=== PATIENT | male | born 1945 | race Hispanic/Latino ===

== ENCOUNTER 2019-08-12 11:46 | Inpatient (IN) | payer MEDICARE ==
[~2019-08-12 11:46] MED LIST: Calcium Chloride 1 GM/10 ML Abboject SYRINGE ONE; EPHEDRINE 25 MG/5 ML SYRINGE ONE; Iopamidol 370 76% 100 ML VIAL ONE; Iopamidol 370 76% 50 ML VIAL FS ONE; Metoclopramide HCl 10 MG/2 ML VIAL ONE; Ondansetron PF 4 MG/2 ML Vial ONE; PHENYLEPHRINE-NS 100 MCG/ML 10 ML SYRINGE ONE; Rocuronium Bromide 10 MG/ML (10ML VIAL) ONE; Succinylcholine Chloride 20 MG/ML 10 ml SYRINGE FS ONE; Vecuronium 10 MG VIAL ONE
[2019-08-12] MEDS ORDERED: Ketamine 50 MG/ML (10ML VIAL) ONE ×2 (12:10→12:20)
[2019-08-12] MEDS ORDERED: Rocuronium Bromide 10 MG/ML (10ML VIAL) ONE ×2 (12:10→12:12)
[2019-08-12 12:12] LABS: #Basophils 0.1 thou/uL (0.0-0.2); #Eosinphils 0.3 thou/uL (0.0-0.7); #Lymphocytes 1.2 thou/uL (1.20-3.40); #Monocytes 0.4 thou/uL (0.11-0.59); #Neutrophils 10.8 thou/uL (1.40-6.50); %Basophils 0.6 % (0.0-1.0); %Eosinophils 2.3 % (0.0-10.0); %Lymphocytes 9.2 % (21.0-51.0); %Monocytes 3.3 % (0.0-10.0); %Neutrophils 84.7 % (42.0-75.0); Hemoglobin 12.3 g/dL (14.0-18.0); Mean Corpuscular Hemoglobin 32.8 pg (27.0-31.0); Mean Corpuscular Volume 99.3 fL (78.0-98.0); Mean Platelet Volume 8.5 fL (7.4-10.4); Platelet Count 156 thou/uL (130-400); RBC Distribution Width 13.4 % (11.5-14.5); Red Blood Cell (RBC) Count 3.74 mill/uL (4.70-6.10); White Blood Cell (WBC) Count 12.8 thou/uL (4.8-10.8)
[2019-08-12] MEDS ORDERED: Rocuronium Bromide 50 MG/5 ML VIAL ONE (12:12)
[2019-08-12] MEDS ORDERED: Fentanyl 100 MCG/2 ML VIAL ONE (12:18)
[2019-08-12] MEDS ORDERED: Norepinephrine 4 MG/4 ML VIAL ONE (12:18)
[2019-08-12] MEDS ORDERED: Phenylephrine 10 MG/ML VIAL ONE (12:18)
[2019-08-12] MEDS ORDERED: Albumin 25% 0 ML ONE (12:19)
[2019-08-12] MEDS ORDERED: Famotidine/PF 20 mg/2ml Vial ONE (12:19)
[2019-08-12] MEDS ORDERED: Albumin 5% 500 ML ONE (12:19)
[2019-08-12 12:20] LABS: INR-International Normal Ratio 1.2; PTT 23.8 SEC (22.9-36.1); Prothrombin Time 14.9 SEC (12.0-14.7)
[2019-08-12] MEDS ORDERED: Heparin 10,000 UNITS/1 ML VIAL ONE (12:23)
[2019-08-12 12:28] LABS: ALT (SGPT) 7 U/L (8-55); AST (SGOT) 14 U/L (5-34); Albumin 3.6 g/dL (3.4-4.8); Alkaline Phosphatase 51 U/L (40-110); Anion Gap 11 mmol/L (10-20); BUN (Urea Nitrogen) 13 mg/dL (8.4-25.7); Bilirubin, Total 0.4 mg/dL (0.2-1.2); Calc. Creatinine Clearance 0 mL/min (70-130); Calcium 8.1 mg/dL (7.8-10.44); Carbon Dioxide 25 mmol/L (23-31); Chloride 107 mmol/L (98-107); Estimated GFR-MDRD 53; Globulin 2.4 g/dL (2.4-3.5); Glucose 190 mg/dL (83-110); Lipase 15 U/L (8-78); Potassium 3.1 mmol/L (3.5-5.1); Sodium 140 mmol/L (136-145)
[2019-08-12 12:49] LABS: CKMB 1.5 ng/mL (0-6.6)
[2019-08-12] MEDS ORDERED: Heparin 5,000 UNITS/ML VIAL ONE (12:52)
[2019-08-12] MEDS ORDERED: Midazolam HCl 2 mg/2 ml Vial ONE (12:55)
[2019-08-12] MEDS ORDERED: Sodium Bicarb 50 MEQ/50 ML VIAL ONE ×2 (13:04→13:57)
[2019-08-12] MEDS ORDERED: Sodium Bicarbonate 2.5 MEQ/5 ML VIAL ONE (13:04)
[2019-08-12] MEDS ORDERED: Protamine Sulfate 50 MG/5 ML VIAL ONE (13:39)
--- NOTE | 2019-08-12 13:54 | CT ---
CT CHEST WITH IV CONTRAST AND 3D POSTPROCESSING CT ABDOMEN WITH IV CONTRAST AND 3D POSTPROCESSING: HISTORY: A 74-year-old male with syncope, right lower quadrant pain. FINDINGS: There is a large amount of retroperitoneal hemorrhage in the abdomen and pelvis secondary to a ruptur ed dissecting abdominal aortic aneurysm measuring about 9.6 cm. Active extravasation of contrast is also seen. There is absence of flow/enhancement of the upper portion of the right renal cortex consi stent with infarction. Flow is demonstrated to the common femoral arteries. There is good flow to t he left kidney. 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 No pleural or pericardial effusions are seen. No pneumothoraces or lobar consolidation identified. There are d ependent changes in the posterior lung bases. There are degenerative changes in the spine. Flow is demonstrated in the celiac axis and the SMA and the left renal artery. IMPRESSION: Acute rupture of the dissecting abdominal aortic aneurysm with extensive retroperitoneal hemorrhage. Discussed over the telephone with ER physician, Dr. Lance Thomson, at 12:24 p.m. CODE CR POS: NICHOLAS
[2019-08-12] MEDS ORDERED: Norepinephrine 8 MG/0.9% NS 250 ML IVPB PRN (15:02)
[2019-08-12] MEDS ORDERED: Hetastarch 6% 500 ML 500 ML IVPB PRN (15:02)
[2019-08-12] MEDS ORDERED: Morphine 2 MG/ML SYRINGE SLOW IVP PRN ×2 (15:02→15:38)
[2019-08-12] MEDS ORDERED: Fentanyl 100 MCG/2 ML VIAL SLOW IVP PRN ×2 (15:02)
[2019-08-12] MEDS ORDERED: Post-Op Insulin Drip Protocol IVPB ONE (15:02)
[2019-08-12] MEDS ORDERED: niCARdipine 25 MG in Sodium Chloride 0.9% 250 ML 250 ML IVPB PRN (15:02)
[2019-08-12] MEDS ORDERED: DOPamine 400 MG/D5W 250 ML 250 ML IVPB PRN (15:02)
[2019-08-12] MEDS ORDERED: Ondansetron PF 4 MG/2 ML Vial IVP PRN (15:02)
[2019-08-12] MEDS ORDERED: Ventilator Sedation Protocol 1 EACH FS SCH (15:15)
--- NOTE | 2019-08-12 15:28 | HP ---
HISTORY OF PRESENT ILLNESS: This is a 74-year-old who really could not give me any history because he was fairly obtunded, but EMS informed me the patient evidently passed out in his garage and was unable to call for help for about an hour when he finally was able to get to the phone. He was found to be severely hypotensive on the scene and was in the process of receiving massive transfusion protocol when I arrived in the high ER. He was in the CT scanner at that point, showing a large ruptured abdominal aortic aneurysm. PAST MEDICAL HISTORY: No past medical history could be obtained. PHYSICAL EXAMINATION: GENERAL: On exam, the patient would awaken when I talk to him, but he was rather groggy, somewhat pale. LUNGS: Clear to auscultation. ABDOMEN: Firm and very tender, particularly in the lower abdominal area. He had no palpable femoral pulses. The patient is to be escorted immediately to the operating room for ruptured abdominal aneurysm. Job ID: [id number]
[2019-08-12 15:33] LABS: #Eosinphils 0.1 thou/uL (0.0-0.7); #Lymphocytes 0.6 thou/uL (1.20-3.40); #Monocytes 0.5 thou/uL (0.11-0.59); #Neutrophils 10.2 thou/uL (1.40-6.50); %Eosinophils 0.9 % (0.0-10.0); %Lymphocytes 4.9 % (21.0-51.0); %Monocytes 4.2 % (0.0-10.0); %Neutrophils 89.9 % (42.0-75.0); Hemoglobin 12.2 g/dL (14.0-18.0); INR-International Normal Ratio 1.2; Mean Corpuscular Hemoglobin 32.6 pg (27.0-31.0); Mean Platelet Volume 8.5 fL (7.4-10.4); Platelet Count 81 thou/uL (130-400); Prothrombin Time 15.6 SEC (12.0-14.7); RBC Distribution Width 13.6 % (11.5-14.5); Red Blood Cell (RBC) Count 3.75 mill/uL (4.70-6.10); White Blood Cell (WBC) Count 11.4 thou/uL (4.8-10.8)
[2019-08-12 15:34] LABS: PTT 34.3 SEC (22.9-36.1)
[2019-08-12] MEDS ORDERED: Dextrose 5% in Water 1,000 ML IV PRN (15:38)
[2019-08-12] MEDS ORDERED: Dextrose 50% Abboject 50 ML SYRINGE SLOW IVP PRN (15:38)
[2019-08-12] MEDS ORDERED: DISCONTINUE PREVIOUS NARCOTIC PAIN MEDICATIONS AND BENZODIAZEPINES FS SCH (15:38)
[2019-08-12] MEDS ORDERED: Propofol BOLUS 1,000 MG/100 ML VIAL IV PRN (15:38)
[2019-08-12] MEDS ORDERED: Insulin Regular 300 UNITS/3 ML VIAL SC PRN (15:38)
[2019-08-12] MEDS ORDERED: Fentanyl BOLUS 250 ML IVPB PRN (15:38)
[2019-08-12] MEDS ORDERED: fentaNYL Citrate/PF 2,000 MCG in Sodium Chloride 0.9% 60 ML IV SCH (15:38)
[2019-08-12] MEDS ORDERED: Lorazepam 2 MG/ML VIAL SLOW IVP PRN (15:38)
[2019-08-12] MEDS ORDERED: HUMULIN R 100 UNITS in Sodium Chloride 0.9% 100 ML IVPB SCH (15:38)
[2019-08-12 15:51] LABS: Anion Gap 16 mmol/L (10-20); BUN (Urea Nitrogen) 12 mg/dL (8.4-25.7); Calc. Creatinine Clearance 0 mL/min (70-130); Carbon Dioxide 27 mmol/L (23-31); Chloride 108 mmol/L (98-107); Estimated GFR-MDRD 66; Glucose 156 mg/dL (83-110); Potassium 3.8 mmol/L (3.5-5.1); Sodium 147 mmol/L (136-145)
[2019-08-12] MEDS: Propofol 1,000 MG/100 ML VIAL IV PRN ×2 (16:20→18:40)
[2019-08-12] MEDS: Sodium Chloride 0.9% 1,000 ML IV SCH (16:20)
--- NOTE | 2019-08-12 16:36 | RAD ---
PORTABLE CHEST: Date: 08-12-2019 Provided Clinical History: Post op. FINDINGS: CT examination performed earlier same date. There is conspicuous appearance to the aortic arch compat ible with the previously described aneurysmal dilatation. Heart size remains normal. Interval intubat ion, with the tip of the ET tube projecting just below the thoracic inlet. Right subclavian central l ine is present, tip projecting in the region of the right atrium. Enteric catheter is present, tip of which overlies the left midabdomen. No focal consolidation, pleural fluid or pneumothorax apparent w ith regards to the later due to the supine nature of the study. Bibasilar subsegmental atelectatic ch anges are seen. IMPRESSION: Interval support apparatus as above. POS: FORTINO
--- NOTE | 2019-08-12 17:15 | CON ---
DATE OF CONSULTATION: HISTORY OF PRESENT ILLNESS: A 74-year-old gentleman, who is intubated in the vent post emergency abdominal aortic aneurysm repair. He presented to the ER today with a blood pressure of 77/53, respirations 20, pulse 72 with abdominal pain, sudden onset. He was hypotensive and bradycardic. He then underwent imaging studies, which showed evidence of rupture of the aortic abdominal aneurysm. He received transfusion. He is now postop on the vent. At this time, there is no initial information obtained except past medical history that is pertinent for apparently hypertension. Please note, Pulmonary/Critical Care will get information from the family as they arrive. His primary care physician lives locally. We may contact him. REVIEW OF SYSTEMS: Otherwise, unremarkable. PHYSICAL EXAMINATION: VITAL SIGNS: Pulse 59, blood pressure 112/59, saturations are 100%, respiratory rate 12. GENERAL: He is sedated. CHEST: No wheezing or crackles. CARDIAC: Normal S1 and S2. No gallops. ABDOMEN: No masses. LABORATORY DATA: Unremarkable. H and H are now stable at 12 and 34. Platelet count is low at 81. His lytes are normal. X-ray is clear. Lactic acid 4.2. IMPRESSION: 1. Status post hypotension secondary to ruptured abdominal aortic aneurysm, status post emergent surgery. 2. Shock, hypotension. PLAN: Continue supportive care. Once he stabilizes, start weaning. As noted, we will try and get additional information as family arrives. TIME SPENT: 45 minutes of Critical Care time. Job ID: [id number]
[2019-08-12 18:23] LABS: Lactic Acid 2.3 mmol/L (0.5-2.2)
[2019-08-12] MEDS ORDERED: Atropine Sulfate 1 mg/10 ml Syringe ONE (19:23)
[2019-08-12 19:34] LABS: Hemoglobin 11.4 g/dL (14.0-18.0)
[2019-08-12 19:36] LABS: Actual Bicarbonate (HCO3a) 24.8 mEq/L (22-28); Calcium, Ionized 1.01 mmol/L (1.12-1.30); Carboxyhemoglobin (COHb) 1.3 gm% (0.0-3.0); Hemoglobin (Hb) 11.1 g/dL (14.0-18.0); O2 Tension (PaO2) 62.9 mmHg (> 70.0); Potassium - ABG Lab 3.43 mmol/L (3.70-5.30)
[2019-08-12] MEDS: CEFAZOLIN 2 GM in Premix Bag 1 BAG IVPB SCH (19:43)
[2019-08-12] MEDS: Famotidine/PF 20 mg/2ml Vial SLOW IVP SCH (20:00)
[2019-08-12] MEDS: Nitroglycerin 50 MG/250 ML BOT 250 ML IVPB PRN (20:34)
[2019-08-12] MEDS ORDERED: Famotidine/PF 20 mg/2ml Vial SLOW IVP SCH (21:00)
[2019-08-12 21:26] LABS: Hemoglobin 10.8 g/dL (14.0-18.0); Platelet Count 65 thou/uL (130-400)
[2019-08-12 21:47] LABS: Potassium 3.4 mmol/L (3.5-5.1)
[2019-08-12] MEDS: Potassium Chloride 20 MEQ/100 ML PREMIX BAG IVPB PRN (23:01)
[2019-08-13] MEDS: Sodium Chloride 0.9% 1,000 ML IV SCH ×2 (00:31→07:39)
[2019-08-13] MEDS: Propofol 1,000 MG/100 ML VIAL IV PRN ×2 (00:33→08:04)
[2019-08-13 00:58] LABS: Hemoglobin 10.5 g/dL (14.0-18.0); Platelet Count 71 thou/uL (130-400)
[2019-08-13] MEDS: CEFAZOLIN 2 GM in Premix Bag 1 BAG IVPB SCH ×2 (04:46→11:31)
[2019-08-13 05:30] LABS: #Lymphocytes 0.8 thou/uL (1.20-3.40); #Monocytes 0.5 thou/uL (0.11-0.59); #Neutrophils 6.4 thou/uL (1.40-6.50); %Basophils 0.4 % (0.0-1.0); %Eosinophils 0.1 % (0.0-10.0); %Lymphocytes 10.4 % (21.0-51.0); Mean Corpuscular HGB CONC 35.4 g/dL (32.0-36.0); Mean Corpuscular Hemoglobin 32.3 pg (27.0-31.0); Mean Corpuscular Volume 91.2 fL (78.0-98.0); Mean Platelet Volume 9.5 fL (7.4-10.4); Platelet Count 73 thou/uL (130-400); RBC Distribution Width 14.1 % (11.5-14.5); Red Blood Cell (RBC) Count 3.09 mill/uL (4.70-6.10); White Blood Cell (WBC) Count 7.7 thou/uL (4.8-10.8)
[2019-08-13 05:50] LABS: Anion Gap 11 mmol/L (10-20); BUN (Urea Nitrogen) 16 mg/dL (8.4-25.7); Calc. Creatinine Clearance 83 mL/min (70-130); Calcium 7.5 mg/dL (7.8-10.44); Carbon Dioxide 27 mmol/L (23-31); Chloride 112 mmol/L (98-107); Estimated GFR-MDRD 67; Glucose 113 mg/dL (83-110); Potassium 3.7 mmol/L (3.5-5.1); Sodium 146 mmol/L (136-145)
[2019-08-13] MEDS: Potassium Chloride 20 MEQ/100 ML PREMIX BAG IVPB PRN (06:01)
--- NOTE | 2019-08-13 07:46 | OP ---
DATE OF PROCEDURE: 08/12/2019 PREOPERATIVE DIAGNOSIS: Ruptured abdominal aortic aneurysm. PROCEDURE: Repair using a #20 tube graft. WEB COORDINATOR: Rocky. TRANSFUSION: Multiple units of packed red cells and fresh frozen plasma. DESCRIPTION OF PROCEDURE: After adequate anesthesia had been obtained, a right subclavian triple-lumen CVP was placed, but did require a number of punctures to be able to thread the wire. After this had been done, the patient was prepped and draped. While Anesthesia was attempting to start a radial art line, the patient's midline laparotomy was carried out. Abdomen was entered and there was no obvious free blood. However, there was a huge retroperitoneal hematoma approximating the anterior fascial region. Attempts to identify the aorta at the diaphragmatic hiatus were unsuccessful due to the size of the hematoma. For this reason, self-retaining retractors were placed and the bowel was mobilized toward the right side. The ligament of Treitz had been shifted well to the left of the midline after mobilizing the duodenum. The aorta was palpated above the aneurysm and a clamp applied. Following this, the aneurysm was opened after identifying the iliac arteries and clamping them. After opening the aorta, there was still some bleeding proximally and dissection was then carried out and a clamp applied slightly higher on the aorta above the aneurysm. This stopped the bleeding, and lumbar vessels were oversewn. The thrombus was removed from the right common iliac artery, this appeared to be more chronic thrombus. There was some back bleeding from both iliac arteries and 5000 units of heparin were given. The proximal anastomosis was then carried out with a #20 Hemashield graft and a running 3-0 Prolene suture, and following completion of this, there was good hemostasis, but there was bleeding from the aorta in the region of the cross clamp on the left side of the aorta. This was controlled with 2 pledgeted sutures. Following this, attention was turned to the distal anastomosis, which was carried out to the combined orifices of the common iliac arteries. After this had been completed, flow was restored after ensuring that there was no clot in the iliac arteries or in the graft. Following this, the abdomen was irrigated with warm saline and bleeding sites were inspected and there were no bleeding sites from the suture line or the supra-graft aorta. Following this, the aneurysm sac was used to close over the graft and the abdominal contents were returned into the abdominal cavity, where a double-stranded running PDS suture was used to close the fascia. Subcutaneous tissue and skin were closed in layers. A right femoral arterial line was placed with good femoral pulses palpable and both feet were pink. The patient was to be taken to the ICU in critical condition. Job ID: [id number]
[2019-08-13] MEDS: Lactated Ringer's 1,000 ML IV SCH ×2 (07:52→20:29)
--- NOTE | 2019-08-13 07:53 | RAD ---
EXAM: Portable chest PROVIDED CLINICAL HISTORY: Post open heart COMPARISON: 08/12/2019 FINDINGS: Cardiac and mediastinal silhouette is within normal limits. No focal consolidation, pleural fluid or pneumothorax evident. Support apparatus redemonstrated in similar positions. Persistent bibasilar subsegmental atelectatic change. IMPRESSION: No evidence for an acute cardiopulmonary process.
[2019-08-13] MEDS: Famotidine/PF 20 mg/2ml Vial SLOW IVP SCH ×2 (09:46→20:29)
--- NOTE | 2019-08-13 11:04 | PRG ---
DATE OF SERVICE: 08/13/2019 SUBJECTIVE: This morning, he is awake, alert, responsive on the vent. OBJECTIVE: VITAL SIGNS: Pulse 64, blood pressure 107/60, respiratory rate 18. EXTREMITIES: Moves all 4 extremities. CHEST: Decreased breath sounds. No wheezing. CARDIAC: Normal S1 and S2. No gallops. ABDOMEN: No masses. LABORATORY DATA: Lab shows renal function normal, glucose 113. His platelet count is 73,000, H and H 10 and 28. IMAGING: X-ray is clear, questionable atelectatic changes. ASSESSMENT: 1. Emergency surgery for ruptured aortic aneurysm repair. 2. Hypotension. PLAN: Try to wean and extubate. Continue PT, supportive care. We will follow. One-half hour of critical time. Job ID: [id number]
[2019-08-13] MEDS: hydrALAZINE 20 MG/ML VIAL SLOW IVP PRN (12:23)
[2019-08-13 14:19] LABS: Hemoglobin 10.7 g/dL (14.0-18.0); Platelet Count 74 thou/uL (130-400)
[2019-08-13] MEDS: Morphine 4 MG/ML VIAL IV PRN ×3 (14:32→22:18)
[2019-08-13] MEDS ORDERED: Fentanyl 100 MCG/2 ML VIAL SLOW IVP PRN (16:50)
[2019-08-14] MEDS: hydrALAZINE 20 MG/ML VIAL SLOW IVP PRN ×2 (02:17→09:29)
[2019-08-14] MEDS: Labetalol HCl 100 MG/20 ML VIAL SLOW IVP PRN (03:27)
[2019-08-14 04:21] LABS: #Lymphocytes 0.7 thou/uL (1.20-3.40); #Monocytes 0.6 thou/uL (0.11-0.59); #Neutrophils 8.8 thou/uL (1.40-6.50); %Basophils 0.1 % (0.0-1.0); %Eosinophils 0.3 % (0.0-10.0); %Lymphocytes 6.4 % (21.0-51.0); %Monocytes 5.5 % (0.0-10.0); %Neutrophils 87.6 % (42.0-75.0); Hemoglobin 9.7 g/dL (14.0-18.0); Mean Corpuscular HGB CONC 34.6 g/dL (32.0-36.0); Mean Corpuscular Hemoglobin 32.3 pg (27.0-31.0); Mean Corpuscular Volume 93.3 fL (78.0-98.0); Mean Platelet Volume 8.9 fL (7.4-10.4); Platelet Count 80 thou/uL (130-400); RBC Distribution Width 14.2 % (11.5-14.5); Red Blood Cell (RBC) Count 2.99 mill/uL (4.70-6.10); White Blood Cell (WBC) Count 10.1 thou/uL (4.8-10.8)
[2019-08-14 04:25] LABS: Anion Gap 12 mmol/L (10-20); BUN (Urea Nitrogen) 14 mg/dL (8.4-25.7); Calc. Creatinine Clearance 109 mL/min (70-130); Calcium 8.4 mg/dL (7.8-10.44); Carbon Dioxide 26 mmol/L (23-31); Chloride 109 mmol/L (98-107); Estimated GFR-MDRD Greater than 90; Glucose 110 mg/dL (83-110); Potassium 3.5 mmol/L (3.5-5.1); Sodium 143 mmol/L (136-145)
[2019-08-14] MEDS: Potassium Chloride 20 MEQ/100 ML PREMIX BAG IVPB PRN (05:02)
[2019-08-14] MEDS: Lactated Ringer's 1,000 ML IV SCH ×2 (05:02→20:53)
[2019-08-14] MEDS: Fentanyl 100 MCG/2 ML VIAL SLOW IVP PRN (05:04)
--- NOTE | 2019-08-14 08:12 | RAD ---
CHEST 1 VIEW: Date: 08/14/2019 INDICATION: History of open heart surgery. COMPARISON: Prior exam dated 08/13/2019. FINDINGS: Since the comparison examination, the patient has been extubated. Gastric catheter and right subclavi an central venous catheter remain. Mild cardiomegaly is present. Mild pulmonary vascular congestion i s present. Small bilateral pleural effusions are noted. No pneumothorax is evident. Visualized upper abdomen and osseous structures appear within normal limits. IMPRESSION: 1. Interval extubation. 2. Mild cardiomegaly and mild pulmonary vascular congestion with small bilateral pleural effusions. Recommend correlation for mild CHF or mild volume overload. 3. Stable gastric catheter and right subclavian central venous catheter. POS: BH
[2019-08-14] MEDS ORDERED: Promethazine HCl 25 MG/ML VIAL SLOW IVP PRN (08:28)
[2019-08-14] MEDS: Enalaprilat Dihydrate 2.5 MG in Dextrose 5% in Water 50 ML IVPB PRN ×2 (08:47→17:48)
[2019-08-14] MEDS: Famotidine/PF 20 mg/2ml Vial SLOW IVP SCH ×2 (08:47→20:41)
--- NOTE | 2019-08-14 09:22 | PRG ---
DATE OF SERVICE: 08/14/2019 SUBJECTIVE: Adam Gupta is a 74-year-old gentleman, status post abdominal aortic rupture. OBJECTIVE: GENERAL: He is doing better, awake, alert, responsive this morning. His pain is improved. VITAL SIGNS: His temperature is 98. His blood pressure is much improved at 98/55. CHEST: Decreased breath sounds. No wheezing. CARDIAC: Normal S1 and S2. No gallops. DIAGNOSTIC STUDIES: Chest x-ray shows nonspecific bibasilar atelectatic changes. H and H are stable. Platelet count is 80,000. ASSESSMENT: 1. Status post emergency rupture surgery, abdominal aortic aneurysm. 2. Hypertension. 3. Bibasilar atelectatic changes. PLAN: Continue PT, supportive care. We will follow. Job ID: [id number]
[2019-08-14] MEDS: Nitroglycerin 50 MG/250 ML BOT 250 ML IVPB PRN (13:57)
[2019-08-14] MEDS: Morphine 4 MG/ML VIAL IV PRN (22:13)
[2019-08-15] MEDS: Labetalol HCl 100 MG/20 ML VIAL SLOW IVP PRN (04:23)
[2019-08-15] MEDS: Nitroglycerin 50 MG/250 ML BOT 250 ML IVPB PRN (04:31)
[2019-08-15 04:52] LABS: #Lymphocytes 0.8 thou/uL (1.20-3.40); #Monocytes 0.5 thou/uL (0.11-0.59); #Neutrophils 7.4 thou/uL (1.40-6.50); %Basophils 0.4 % (0.0-1.0); %Eosinophils 0.4 % (0.0-10.0); %Lymphocytes 8.7 % (21.0-51.0); %Monocytes 6.2 % (0.0-10.0); %Neutrophils 84.3 % (42.0-75.0); Hemoglobin 8.6 g/dL (14.0-18.0); Mean Corpuscular HGB CONC 34.6 g/dL (32.0-36.0); Mean Corpuscular Hemoglobin 32.5 pg (27.0-31.0); Mean Corpuscular Volume 93.7 fL (78.0-98.0); Mean Platelet Volume 9.1 fL (7.4-10.4); Platelet Count 90 thou/uL (130-400); RBC Distribution Width 13.9 % (11.5-14.5); Red Blood Cell (RBC) Count 2.65 mill/uL (4.70-6.10); White Blood Cell (WBC) Count 8.8 thou/uL (4.8-10.8)
[2019-08-15 05:10] LABS: Anion Gap 10 mmol/L (10-20); BUN (Urea Nitrogen) 12 mg/dL (8.4-25.7); Calc. Creatinine Clearance 122 mL/min (70-130); Calcium 8.2 mg/dL (7.8-10.44); Carbon Dioxide 25 mmol/L (23-31); Chloride 109 mmol/L (98-107); Estimated GFR-MDRD Greater than 90; Glucose 106 mg/dL (83-110); Potassium 3.3 mmol/L (3.5-5.1); Sodium 141 mmol/L (136-145)
[2019-08-15] MEDS: Potassium Chloride 20 MEQ/100 ML PREMIX BAG IVPB PRN (06:01)
--- NOTE | 2019-08-15 07:35 | PRG ---
DATE OF SERVICE: 08/15/2019 Adam Davis now postoperative day #3 following emergency resection of a ruptured abdominal aortic aneurysm. His vital signs still trending on high blood pressure side, but on IV nitroglycerin and labetalol as needed. He has been on Vasotec, but not on a regular schedule. He says he has passed some gas out his rectum and is no longer retching or nauseated. His NG tube put out about 500 mL for the shift. He was able to walk around the room some yesterday. His lungs are clear anteriorly. His abdomen is soft. His dressing has some spots of blood dried on it. His extremities are without edema. His abdomen is quiet at the present time. We will try removing his NG tube today and beginning clear liquids. I will start some low-dose beta loretta and lisinopril, and continue the p.r.n. hydralazine and Vasotec as needed. We will transfer to the floor today. Job ID: [id number]
[2019-08-15] MEDS: Enalaprilat Dihydrate 2.5 MG in Dextrose 5% in Water 50 ML IVPB PRN ×2 (07:40→16:15)
--- NOTE | 2019-08-15 07:55 | RAD ---
EXAM: Portable chest PROVIDED CLINICAL HISTORY: Respiratory insufficiency COMPARISON: 08/14/2019 FINDINGS: Significant interval change with respect to the prior examination is not apparent. IMPRESSION: As above.
[2019-08-15] MEDS ORDERED: Lisinopril 5 MG TAB PO SCH (09:00)
[2019-08-15] MEDS: Metoprolol Tartrate 25 MG TAB PO SCH ×2 (09:01→20:03)
--- NOTE | 2019-08-15 10:11 | PRG ---
DATE OF SERVICE: 08/15/2019 SUBJECTIVE: He is having some difficulty breathing this morning. He said he is wheezing, quit smoking in February. OBJECTIVE: VITAL SIGNS: Temperature 98, pulse 74, blood pressure 160/92, saturation on room air. CHEST: Prolonged expiration. Occasional wheeze. CARDIAC: Normal S1 and S2. No gallops. ABDOMEN: No masses. LABORATORY DATA: His lab was unremarkable. IMAGING STUDIES: His chest x-ray, left-sided infiltrate, small effusion. IMPRESSION: 1. Status post abdominal aortic aneurysm repair. 2. Former smoker, probably chronic obstructive pulmonary disease. PLAN: Continue PT supportive care. Start neb treatments. We will follow. Job ID: [id number]
[2019-08-15] MEDS: hydrALAZINE 20 MG/ML VIAL SLOW IVP PRN (15:34)
[2019-08-15] MEDS: Mometasone 200 MCG/Formoterol 5 MCG 120 PUFF INHALER INH SCH (18:27)
[2019-08-16] MEDS: Enalaprilat Dihydrate 2.5 MG in Dextrose 5% in Water 50 ML IVPB PRN ×2 (01:31→16:46)
[2019-08-16] MEDS: hydrALAZINE 20 MG/ML VIAL SLOW IVP PRN ×3 (02:57→18:08)
[2019-08-16 04:51] LABS: #Eosinphils 0.1 thou/uL (0.0-0.7); #Monocytes 0.7 thou/uL (0.11-0.59); #Neutrophils 6.9 thou/uL (1.40-6.50); %Basophils 0.3 % (0.0-1.0); %Eosinophils 1.6 % (0.0-10.0); %Monocytes 8.2 % (0.0-10.0); %Neutrophils 78.8 % (42.0-75.0); Hemoglobin 10.3 g/dL (14.0-18.0); Mean Corpuscular HGB CONC 34.6 g/dL (32.0-36.0); Mean Corpuscular Hemoglobin 32.5 pg (27.0-31.0); Mean Corpuscular Volume 93.8 fL (78.0-98.0); Platelet Count 129 thou/uL (130-400); RBC Distribution Width 13.9 % (11.5-14.5); Red Blood Cell (RBC) Count 3.19 mill/uL (4.70-6.10); White Blood Cell (WBC) Count 8.7 thou/uL (4.8-10.8)
[2019-08-16 05:17] LABS: Anion Gap 11 mmol/L (10-20); BUN (Urea Nitrogen) 9 mg/dL (8.4-25.7); Calc. Creatinine Clearance 118 mL/min (70-130); Calcium 8.5 mg/dL (7.8-10.44); Carbon Dioxide 26 mmol/L (23-31); Chloride 107 mmol/L (98-107); Estimated GFR-MDRD Greater than 90; Glucose 95 mg/dL (83-110); Potassium 3.7 mmol/L (3.5-5.1); Sodium 140 mmol/L (136-145)
[2019-08-16] MEDS: Mometasone 200 MCG/Formoterol 5 MCG 120 PUFF INHALER INH SCH ×2 (06:55→18:32)
[2019-08-16] MEDS: Metoprolol Tartrate 25 MG TAB PO SCH ×2 (07:51→20:10)
[2019-08-16] MEDS: Lisinopril 10 MG TAB PO SCH (07:52)
--- NOTE | 2019-08-16 07:57 | PRG ---
DATE OF SERVICE: 08/16/2019 Patient is afebrile. Blood pressure mildly elevated on current regimen. He had stable labs this morning with a hemoglobin greater than 10, a platelet count that is rising and chemistries that are satisfactory. He has been passing flatus, but no bowel movement and he is voiding a lot of urine he says. He has no complaints. His lungs are clear, his abdomen is soft with some bowel sounds, and his extremities are warm. Anticipate discharge tomorrow if he continues to make good progress with his ambulation. Job ID: [id number]
--- NOTE | 2019-08-16 10:00 | PRG ---
DATE OF SERVICE: 08/16/2019 SUBJECTIVE: This is a 74-year-old gentleman, who is doing much better, less short of breath. OBJECTIVE: VITAL SIGNS: Temperature 98, pulse 85, blood pressure 163/86, and sats 97% room air. GENERAL: No longer wheezing. CHEST: Decreased breath sounds. No wheezing. CARDIAC: Normal S1 and S2. No gallops. ABDOMEN: No masses. LABORATORY DATA: Unremarkable. IMPRESSION: 1. Chronic obstructive pulmonary disease. 2. Status post abdominal aortic aneurysm repair. PLAN: Home any time. He does not need any medicine from me. He says he has an inhaler at home. He will be seen in the office once quarantine has resolved. Job ID: [id number]
--- NOTE | 2019-08-16 13:44 | PQF ---
CLINICAL DOCUMENTATION IMPROVEMENT CLARIFICATION FORM: ICD-10 Updated PLEASE DO AN ADDENDUM TO THE PROGRESS NOTE WITH ANY DOCUMENTATION UPDATES OR ADDITIONS AND CARRY THROUGH TO DC SUMMARY. THANK YOU. DATE: 08/16/2019 ATTN: Dr. Burgos Please exercise your independent, professional judgment in responding to the clarification form. Clinical indicators are provided on the bottom of this form for your review Please check appropriate box(s): [ ] Hypovolemic Shock [ ] Hemorrhagic Shock due to:_ruptured aaa [ ] Cardiogenic Shock [ ] Shock Unspecified [ ] Other diagnosis [ ] Unable to determine In addition, please specify: Present on Admission (POA): [ y ] Yes [ ] No [ ] Unable to determine For continuity of documentation, please document condition throughout progress notes and discharge summary. Thank You. CLINICAL INDICATORS - SIGNS / SYMPTOMS / LABS / RESULTS AND LOCATION IN MR ER RECORD 08/11: VS: BP 77/53 pulse 72 Resp. 20 BP 84/51 pulse 78 BP 53/39 pulse 63 H&P 08/11: He was found to be severely hypotensive on the scene and was in the process of receiving massive transfusion protocol when I arrived in the ER. He was in the CT scanner at that point, showing a large rupture abdominal aortic aneurysm. 08/11 ([facility]) Shock, hypotension RISKS: H&P 08/11: ruptured abdominal aneurysm. TREATMENT: Operative note 08/11: Ruptured AAA repair using a # 20 tube graft. Transfusion: Multiple units of packed red cells and fresh frozen plasma. Thank you, Inez (This form is maintained as a part of the permanent medical record) 2014 [employer]. All Rights Reserved Inez Taylor RN, BSN [email or web address]
[2019-08-16] MEDS: Fentanyl 100 MCG/2 ML VIAL SLOW IVP PRN (22:31)
[2019-08-17] MEDS: hydrALAZINE 20 MG/ML VIAL SLOW IVP PRN (00:24)
[2019-08-17 05:42] VITALS: BMI 35.5
[2019-08-17] MEDS: Mometasone 200 MCG/Formoterol 5 MCG 120 PUFF INHALER INH SCH (06:38)
[2019-08-17] MEDS ORDERED: Metoprolol Tartrate 25 MG TAB PO SCH (09:00)
[2019-08-17] MEDS: Lisinopril 10 MG TAB PO SCH (09:37)
[2019-08-17 11:24] VITALS: BP 160/90; TEMP 97.5
--- NOTE | 2019-08-19 12:40 | DIS ---
DATE OF ADMISSION: 08/12/2019 DATE OF DISCHARGE: 08/17/2019 HOSPITAL COURSE: The patient was admitted with shock on 08/11 and found to have a ruptured abdominal aortic aneurysm, undergoing emergency surgery, receiving 9 units of packed red cells as well as platelets, fresh frozen plasma, and cryo. Postoperatively, he stabilized with normal renal function. His blood pressure was somewhat elevated and he was begun on metoprolol 25 b.i.d. as well as lisinopril 10 mg a day in conjunction with his home medicine of hydrochlorothiazide 12.5 a day. He will be discharged home, ambulating the halls. He has been passing gas and tolerating a diet without difficulty, although has had no bowel movement to this time. He is requiring no pain medications. He will be followed up by myself in about 2 weeks. Job ID: [id number]
--- NOTE | 2019-08-20 13:25 | EKG ---
Test Reason : SYNCOPE Blood Pressure : / mmHG Vent. Rate : 070 BPM Atrial Rate : 070 BPM P-R Int : 154 ms QRS Dur : 100 ms QT Int : 404 ms P-R-T Axes : 040 001 013 degrees QTc Int : 436 ms Normal sinus rhythm Normal ECG Confirmed by TANNER MICHAELS, JAYLA ([id number]), international editorial producer KRISTY REARDON ([id number]) on 08/20/2019 1:25:13 PM Referred By: Confirmed By:JAYLA HART MD
== END 2019-08-17 15:00 | disposition home or self-care (01) | DRG 271 ==
LOC: ERS 11:46 → SDC 12:22 → CCU 15:10 → SURG A 08-15 08:19
PROVIDERS: ADMIT Thoracic Surgery (Cardiothoracic Vascular Surgery); ATTEND Thoracic Surgery (Cardiothoracic Vascular Surgery)
PROC: 04V00DZ Restriction of Abdominal Aorta with Intraluminal Device, Open Approach (ICD-10-PCS; principal; 2019-08-12)
PROC: 30243L1 Transfusion of Nonautologous Fresh Plasma into Central Vein, Percutaneous Approach (ICD-10-PCS; 2019-08-12)
PROC: 30243N1 Transfusion of Nonautologous Red Blood Cells into Central Vein, Percutaneous Approach (ICD-10-PCS; 2019-08-12)
PROC: 30243R1 Transfusion of Nonautologous Platelets into Central Vein, Percutaneous Approach (ICD-10-PCS; 2019-08-12)
PROC: 30243M1 Transfusion of Nonautologous Plasma Cryoprecipitate into Central Vein, Percutaneous Approach (ICD-10-PCS; 2019-08-12)
PROC: 30243K1 Transfusion of Nonautologous Frozen Plasma into Central Vein, Percutaneous Approach (ICD-10-PCS; 2019-08-12)
DX: I71.3 Abdominal aortic aneurysm, ruptured (principal); J98.11 Atelectasis; R57.9 Shock, unspecified; J44.9 Chronic obstructive pulmonary disease, unspecified; Z87.891 Personal history of nicotine dependence; Z79.899 Other long term (current) drug therapy
CPT/HCPCS: 36415; 36416; 36430; 71045; 71275; 72191; 74175; 80048; 80053; 82553; 82805; 83605; 83690; 84484; 85025; 85610; 85730; 86850; 86900; 86901; 93005; 93010; 94002; 94003; 94640; J0360; J0461; J0690; J1644; J2250; J2270; J2370; J2405; J2550; J2704; J2720; J2765; J3010; J3480; J3490; J7620; P9012; P9016; P9035; P9045; P9047; P9048; P9059; Q9967; S0028